=== PATIENT | female | born 1995 | race Caucasian/White ===

== ENCOUNTER 2019-02-11 14:47 | Inpatient (IN) | payer OTHER ==
[~2019-02-11] VITALS: Ht 160 cm; Wt 80.7 kg
[2019-02-11 14:47] VITALS: BP 136/80
--- NOTE | 2019-02-11 14:47 | NUR ---
Patient BIBA ACLS, transferred to bed 5. RN evaluating patient at bedside.
--- NOTE | 2019-02-11 14:50 | NUR ---
23/F BIBA FROM CLINIC FOR WITNESSED SEIZURE SHORTLY EQUIPMENT MONITOR PHOTOTYPESETTING, NO HEAD OR ORAL TRAUMA, PT WAS HELPED TO FLOOR. PT STATED THAT SHE HAD HER FIRST SEIZURE YESTERDAY, HIT HER HEAD, WENT TO [facility], CT HEAD WAS NEGATIVE, RX KEPPRA BUT NOT STARTED YET. PT REPORTS MILD WEAKNESS AND FEELING SPACED OUT. NO HEAD OR ORAL TRAUMA NOTED. PT ARRIVES TO ED, MILDLY POST-ICTAL, AOX4 BUT SLOW TO ANSWER, GCS 15, PERRLA 3MM. LUNG SOUNDS CLEAR BL, RR EVEN AND UNLABORED. ABLE TO MOVE ALL EXTREMITIES BUT WITH WEAKNESS. HX SEIZURE RX KEPPRA (NOT STARTED YET)
--- NOTE | 2019-02-11 14:50 | NUR ---
PT HAD TONIC-CLONIC SEIZURE FOR 30 SECONDS, WITNESSED BY EMT. SAFETY MEASURES ENSURED. DR YAP AWARE.
--- NOTE | 2019-02-11 14:50 | NUR ---
Dr. Hermosillo evaluating patient at bedside.
[2019-02-11] MEDS ORDERED: KETOROLAC 30 MG/ML VIAL IVP ONE (14:55)
[2019-02-11] MEDS ORDERED: NACL 0.9% 1,000 ML IV ONE (14:55)
[2019-02-11] MEDS ORDERED: levETIRAcetam 1,000 MG in NACL 0.9% 100 ML IV ONE (14:55)
[2019-02-11] MEDS ORDERED: LORazepam 2 MG/ML VIAL ONE (15:40)
[2019-02-11] MEDS ORDERED: levETIRAcetam 100 MG/ML VIAL IV ONE (15:41)
[2019-02-11 15:52] LABS: BASOPHILS # (AUTO) 0.1 K/uL (0.00-0.22); BASOPHILS % (AUTO) 0.5 % (0.0-2.0); EOSINOPHILS # (AUTO) 0.1 K/uL (0-0.4); EOSINOPHILS % (AUTO) 0.6 % (0.0-4.0); HEMOGLOBIN 12.9 g/dL (12.0-16.0); LYMPHOCYTES # (AUTO) 2.6 K/uL (2.5-16.5); LYMPHOCYTES % (AUTO) 27.2 % (20.5-51.1); MEAN CORPUSCULAR HEMOGLOBIN 31 pg (27-31); MEAN CORPUSCULAR HGB CONC 34 g/dL (33-37); MEAN CORPUSCULAR VOLUME 89.8 fL (80-94); MONOCYTES # (AUTO) 0.7 K/uL (0.8-1.0); MONOCYTES % (AUTO) 7.7 % (1.7-9.3); PLATELET COUNT (AUTO) 292 K/uL (140-450); RED BLOOD CELL COUNT(AUTO) 4.23 MIL/uL (4.20-5.40); WHITE BLOOD COUNT (AUTO) 9.4 K/uL (4.8-10.8)
[2019-02-11 16:21] LABS: APPEARANCE,URINE CLOUDY (CLEAR); BILIRUBIN,URINE NEGATIVE (NEGATIVE); BLOOD, URINE NEGATIVE (NEGATIVE); COLOR,URINE YELLOW (YELLOW); LEUKOCYTE ESTERASE ,URINE TRACE (NEGATIVE); NITRITE, URINE NEGATIVE (NEGATIVE); PH,URINE 6.5 (5.0-9.0); UGLUCOSE NEGATIVE (NEGATIVE)
[2019-02-11 16:23] LABS: POTASSIUM 3.8 mmol/L (3.5-5.1)
[2019-02-11 16:24] LABS: ALBUMIN 4.1 g/dL (3.4-5.0); ANION GAP 14.6 (8-16); CARBON DIOXIDE 28.2 mmol/L (21-32); CREATININE 0.7 mg/dL (0.6-1.3); TOTAL BILIRUBIN 0.4 mg/dL (0.0-1.0)
[2019-02-11 16:44] LABS: RBC,URINE NONE SEEN /HPF (0-5); WBC,URINE 0-5 /HPF (0-5)
[2019-02-11 17:15] LABS: BARBITURATE, URINE NEGATIVE ng/ml (NEG <=200); BENZODIAZEPINE, URINE NEGATIVE ng/mL (NEG <=200); CANNABINOID, URINE POSITIVE ng/mL (NEG <=50); COCAINE, URINE NEGATIVE ng/mL (NEG <=300); OPIATE, URINE NEGATIVE ng/mL (NEG <=2000); PHENCYCLIDINE SCREEN,URINE NEGATIVE ng/mL (NEG <=25)
--- NOTE | 2019-02-11 17:16 | NUR ---
RECEIVED CALLBACK FROM . NO NEW ORDERS RECEIVED. PT IN STABLE CONDITION AT THIS TIME. ENDORSED TO EDUCATION REPORTER FOR CONTINUITY OF CARE.
--- NOTE | 2019-02-11 17:35 | NUR ---
PT LAYING IN BED, MOTHER AT BEDSIDE. VS NOTED. RR EVEN AND UNLABORED. REPORTS IMPROVEMENT IN SYMPTOMS, AOX4. ALL NEEDS MET.
--- NOTE | 2019-02-11 18:02 | NUR ---
Patient will be admitted to care of DR CLIFFORD. Admited to TELE. Will go to room 120A. Belongings list completed. Report to DAVIDA VERA.
[2019-02-11 18:20] VITALS: BP 110/59
[2019-02-11] MEDS ORDERED: cloNIDine 0.1 MG TAB PO PRN (18:20)
[2019-02-11] MEDS ORDERED: ONDANSETRON 4 MG/2 ML VIAL IVP PRN (18:20)
[2019-02-11] MEDS ORDERED: ACETAMINOPHEN 325 MG TAB PO PRN (18:20)
[2019-02-11] MEDS ORDERED: ACETAMINOPHEN 650 MG SUPP RC PRN (18:20)
[2019-02-11] MEDS ORDERED: ALUMINUM HYD/MAG/SIMETHICONE 30 ML UDC PO PRN (18:20)
[2019-02-11] MEDS ORDERED: SODIUM PHOSPHATE 118 ML ENEM RC PRN (18:20)
[2019-02-11] MEDS ORDERED: LORazepam 2 MG/ML VIAL IVP PRN ×2 (18:20)
[2019-02-11] MEDS ORDERED: POTASSIUM CHLORIDE 10 MEQ TABER PO PRN (18:20)
[2019-02-11] MEDS ORDERED: MORPHINE SULFATE 2 MG/ML SYR IVP PRN (18:20)
[2019-02-11] MEDS ORDERED: ALBUTEROL 0.083% 2.5 MG/3 ML NEBU INH PRN (18:20)
[2019-02-11] MEDS ORDERED: guaiFENesin DM 200/20 MG-10 ML 10 ML UDC PO PRN (18:20)
[2019-02-11] MEDS ORDERED: BISACODYL 10 MG SUPP RC PRN (18:20)
[2019-02-11] MEDS ORDERED: MAGNESIUM OXIDE 400 MG TAB PO PRN (18:20)
[2019-02-11] MEDS ORDERED: MAG SULF 2000 MG/WATER PREMIX 50 ML IV PRN (18:20)
[2019-02-11] MEDS ORDERED: IPRATROPIUM 0.02% 0.5 MG/2.5 ML NEBU INH PRN (18:20)
[2019-02-11] MEDS ORDERED: diphenhydrAMINE 50 MG/ML VIAL IVP PRN (18:20)
[2019-02-11] MEDS ORDERED: DOCUSATE SODIUM 250 MG GELCAP PO PRN (18:20)
[2019-02-11] MEDS ORDERED: HYDROcodone/APAP 5/325 MG 1 TAB TAB PO PRN ×2 (18:20)
--- NOTE | 2019-02-11 18:20 | NUR ---
RECEIVED PT FROM [facility] ED NURSE. PT IS AAOX4, COOPERATIVE. PT ADMITTED FOR NEW ONSET SEIZURES. PT SKIN IS INTACT. ON RA. DENIES PAIN OR SOB. PT HAS LEFT AC 20G, NO FLUID ORDERS AT THIS TIME. PT VITAL SIGNS STABLE. ROOM CHECK DONE. EXPLAINED VS TO PT, PT VERBALIZED UNDERSTANDING. PT WITH FAMILY AT BEDSIDE. EDUCATED PT AND FAMILY ON USE OF CALL LIGHT. TOLD TO CALL FOR ANYTHING INCLUDING SEIZURES. PT AND FAMILY VERBALIZED UNDERSTANDING. BED IN LOW POSITION, CALL LIGHT WITHIN REACH. WILL ROUND FREQUENTLY ON PT.
[2019-02-11 18:51] VITALS: BP 105/60
--- NOTE | 2019-02-11 18:59 | NUR ---
PT HAD SEIZURE AT 1847 THAT LASTED 20 SECONDS. 2MG ATIVAN GIVEN. VS TAKEN AND ALL STABLE. PT ABLE TO ANSWER SIMPLE COMMANDS BUT DELAYED. PAGED. AWAITING CALL BACK.
--- NOTE | 2019-02-11 19:19 | NUR ---
RECEIVED PT. AOX4 MRSA SWAB NARES TAKEN PER PROTOCAL SENT TO LAB. FAMILY AT BEDSIDE. CALL LIGHT WITHIN REACH.
--- NOTE | 2019-02-11 19:20 | NUR ---
REPORT RECIEVED FROM DAY NURSE. PT. STABLE, IV PATENT, EKG SR. SAFETY MEASURES IN PLACE. CALL LIGHT WITHIN REACH.
[2019-02-11 20:00] VITALS: BP 105/65
[2019-02-11] MEDS: NACL 0.9% 1,000 ML IV SCH (20:22)
[2019-02-11] MEDS: levETIRAcetam 1,000 MG in NACL 0.9% 100 ML IV SCH (20:35)
--- NOTE | 2019-02-11 21:30 | NUR ---
PT RESTING NO SEIZURE ACTIVITY. IV PATENT. KEPPRA MEDICATION GIVEN ORDERED. BED LOW POSITION 2 SIDERAILS UP CALL LIGHT WITHIN REACH.
--- NOTE | 2019-02-11 23:30 | NUR ---
PT. RESTING NO DISTRESS PT TALKING WITH FAMILY AT BEDSIDE. NO SEIZURE ACTIVITY. CALL LIGHT WITHIN REACH
[2019-02-12] VITALS: BP 116/47
--- NOTE | 2019-02-12 01:30 | NUR ---
pT AWAKE AND SCARED ABOUT WHAT IS HAPPENING. PT. MEDICATED WITH AMBEIM 5MG ORDERED FOR SLEEP. BED LOW POSITION 2 SIDERAILS UP CALL LIGHT WITHIN REACH.
[2019-02-12] MEDS: ZOLPIDEM 5 MG TAB PO PRN ×2 (01:39→23:28)
[2019-02-12 04:00] VITALS: BP 102/49
--- NOTE | 2019-02-12 06:26 | NUR ---
ENDORSED PT CARE TO DAY NURSE. PT STABLE. SR TELEMETRY.
--- NOTE | 2019-02-12 07:25 | NUR ---
Received report from pm nurse Gianluca. Pt asleep in bed, arousable by auditory stimuli, able to follow commands. Pt shows no signs of distress, no c/o discomfort, answers questions appropriately. Left AC IV intact with ongoing NS @ 50ml/h. Bed alarm on. Call light within reach.
[2019-02-12 08:00] VITALS: BP 105/60
--- NOTE | 2019-02-12 08:22 | NUR ---
PATIENT HAS BEEN SCREENED AND CATEGORIZED LOW NUTRITION RISK. PATIENT WILL BE SEEN WITHIN 7 DAYS OF ADMISSION. 02/18/[address]
[2019-02-12] MEDS: levETIRAcetam 1,000 MG in NACL 0.9% 100 ML IV SCH ×2 (09:50→20:02)
--- NOTE | 2019-02-12 10:30 | NUR ---
Pt resting in bed, no c/o discomfort. No signs of distress. Family at bedside. No seizure activity noted. Bed alarm on. Call light within reach.
[2019-02-12 12:00] VITALS: BP 112/60
--- NOTE | 2019-02-12 13:40 | NUR ---
Pt assisted to restroom. Pt states she doesn't like using the bedside commode. Pt unsteady, handheld assist provided. Pt voided then assisted back to bed. Bed alarm on. Left AC IV intact with ongoing NS @ 50ml/h. Encouraged pt to call for assistance with transfers & ambulation for safety, verbalized understanding. Call light within reach.
[2019-02-12 16:00] VITALS: BP 112/66
[2019-02-12] MEDS: NACL 0.9% 1,000 ML IV SCH (16:07)
[2019-02-12] MEDS ORDERED: INFLUENZA VACCINE QUAD 0.5 ML SYR IM PRN (18:20)
--- NOTE | 2019-02-12 18:24 | NUR ---
Pt resting in bed, currently undergoing EEG with tech at bedside. No signs of distress, FLACC 0. Left AC IV intact with ongoing NS@ 50ml/h. Call light within reach.
--- NOTE | 2019-02-12 19:14 | NUR ---
Report given to pm nurse Mick. Pt resting in bed, family at bedside. Bed alarm on, call light within reach.
--- NOTE | 2019-02-12 19:15 | NUR ---
REPORT RECEIVED FROM AM NURSE AT BEDSIDE. PT IN STABLE CONDITION. AAOX4. INTRODUCED SELF TO PT. BOARD UPDATED. NO COMPLAINTS OF PAIN. NO SOB. AFEBRILE. PT IS AMBULATORY BUT UNSTEADY. HAS A BEDSIDE COMMODE AT BEDSIDE. IV SITE L AC 20G RUNNING NS@50ML/HR PATENT AND INTACT. SKIN WARM, DRY, AND INTACT WITH NO OPEN WOUNDS. BED LOCKED IN LOW POSITION. CALL SANTILLAN WITHIN REACH. SAFETY PRECAUTION IN PLACE. ALL NEEDS MET AT THIS TIME.
[2019-02-12 20:00] VITALS: BP 113/66
--- NOTE | 2019-02-12 20:02 | NUR ---
AMANDA JAY AND RUNNING. PT TOLERATING WELL.
--- NOTE | 2019-02-12 22:00 | NUR ---
PT SLEEPING COMFORTABLY BUT AROUSABLE. NO S/S OF DISTRESS NOTED. WILL CONTINUE TO MONITOR.
--- NOTE | 2019-02-12 23:28 | NUR ---
AMBIEN GIVEN FOR SLEEP. PT TOLERATED WELL.
--- NOTE | 2019-02-12 23:45 | NUR ---
PT SIGNIFICANT OTHER AT BEDSIDE TO VISIT PATIENT. PT AWAKE AND ALERT. NO S/S OF DISTRESS NOTED. WILL CONTINUE TO MONITOR.
[2019-02-13] VITALS: BP 143/51
--- NOTE | 2019-02-13 | NUR ---
PATIENT NOTIFIED ME THAT IV ACCIDENTALLY REMOVED. NOTIFIED THAT PT ALSO REFUSED NEW IV INSERTION. SAID IT IS OK TO KEEP PATIENT WITHOUT IV.
--- NOTE | 2019-02-13 01:45 | NUR ---
PT SLEEPING COMFORTABLY BUT AROUSABLE. NO S/S OF DISTRESS NOTED. RESPIRATIONS EVEN, UNLABORED, AND WNL. NO SEIZURES DURING THIS SHIFT. WILL CONTINUE TO MONITOR.
--- NOTE | 2019-02-13 03:35 | NUR ---
PT SLEEPING COMFORTABLY BUT AROUSABLE. NO S/S OF DISTRESS NOTED. NO COMPLAINTS OF PAIN. NO SOB. AFEBRILE. WILL CONTINUE TO MONITOR.
[2019-02-13 04:00] VITALS: BP 137/63
[2019-02-13] MEDS ORDERED: SODIUM CHLORIDE FLUSH 10 ML SYR IVF SCH (05:00)
--- NOTE | 2019-02-13 05:40 | NUR ---
PT SLEEPING COMFORTABLY BUT AROUSABLE. NO S/S OF DISTRESS NOTED. RESPIRATIONS EVEN, UNLABORED, AND WNL. WILL CONTINUE TO MONITOR.
--- NOTE | 2019-02-13 06:47 | NUR ---
PT SLEEPING COMFORTABLY BUT AROUSABLE. NO S/S OF DISTRESS NOTED. PT IN STABLE CONDITION.
--- NOTE | 2019-02-13 07:20 | NUR ---
RECEIVED REPORT FROM JINRIKSHA DRIVER NURSE. AAOX4, NO C/O PAIN AT THIS TIME. PT ON TELE MONITOR. RESPIRATIONS EVEN AND UNLABORED ON RA. PER DR. CLIFFORD, OK NOT TO HAVE IV LINE AT THIS TIME. BS ACTIVE, SOFT ABDOMEN. SKIN IS INTACT, WARM TO TOUCH. REVIEWED POC WITH PT, PT VERBALIZED UNDERSTANDING.
[2019-02-13 08:00] VITALS: BP 99/57
[2019-02-13] MEDS ORDERED: LEVE1000 PO (09:20)
--- NOTE | 2019-02-13 09:53 | NUR ---
PT GIVEN KEPPRA PER ORDER, PT AWARE OF INDICATION AND POTENTIAL SIDE EFFECTS. ADMINISTERED FLU VACCINE TO LT DELTOID. WILL CONTINUE TO MONITOR.
[2019-02-13] MEDS ORDERED: levETIRAcetam 500 MG TAB PO SCH ×2 (10:00→21:00)
--- NOTE | 2019-02-13 11:10 | NUR ---
PT HAS BEEN DISCHARGED. ALL PAPERWORK SIGNED, ALL QUESTIONS ANSWERED. ALL BELONGINGS AND PRESCRIPTIONS IN PT POSSESSION. IV DISCONTINUED WITH CANNULA INTACT. WRISTBANDS AND TELE MONITOR REMOVED. PT TRANSFERRED OUT OF UNIT VIA WHEELCHAIR, AUNT AND STUDENT NURSE AT SIDE. PT IS IN STABLE CONDITION.
--- NOTE | 2019-02-18 15:17 | NUR ---
CONTACTED PATIENT'S PCP DR. SALMON'S OFFICE AT [phone], ABLE TO SPEAK TO RAYSHAWN, SHE PROVIDED ME WITH FEB 23, 2019 AT 1420PM. ADDRESS TO THE CLINIC IS [address] [place] [address]. CONTACTED PATIENT AT [phone], NO ANSWER. UNABLE TO LEAVE MESSAGE, NO VOICEMAIL.
== END 2019-02-13 11:10 | disposition home or self-care (01) | DRG 53 ==
LOC: MED 14:47 → MTU 17:33
PROVIDERS: ADMIT Internal Medicine Pulmonary Disease; ATTEND Internal Medicine Pulmonary Disease
PROC: 4A00X4Z Measurement of Central Nervous Electrical Activity, External Approach (ICD-10-PCS; principal; 2019-02-13)
PROC: 3E02340 Introduction of Influenza Vaccine into Muscle, Percutaneous Approach (ICD-10-PCS; 2019-02-13)
DX: G40.901 Epilepsy, unspecified, not intractable, with status epilepticus (principal); E66.9 Obesity, unspecified; F12.90 Cannabis use, unspecified, uncomplicated; Z82.0 Family history of epilepsy and other diseases of the nervous system; Z68.31 Body mass index [BMI] 31.0-31.9, adult; Z23 Encounter for immunization
CPT/HCPCS: 36415; 80053; 80305; 81001; 85025; 87081; 87086; 87186; 95816; 96361; 96365; 96375; 99285; J1885; J1953; J2060; J3475; J7030

== ENCOUNTER 2019-10-21 22:58 | Emergency (ER) | payer OTHER, SELFPAY ==
[~2019-10-21] VITALS: Ht 160 cm; Wt 72.6 kg
[~2019-10-21 22:58] MED LIST: LEVE1000 PO
[2019-10-21 23:05] VITALS: BP 130/93
--- NOTE | 2019-10-21 23:10 | NUR ---
24 y/o female presented to ED c/o LLQ abd pain x 1 week , 8/10 stabbing pain. pt states she has been having n/v/d x 1 week . pt states she went to [facility] ER on 10/15 and was dx w/ diverticulitis . pt states she was given antibiotics and since she started taking the medication. Pt states she hasn't been able to hold anything down, food or drinks , x 4 days. Pt states she last vomitted x 1 hr ago. pt states she has been having diarrhea x 3 weeks but blood in stool starting saturday. Pt took Peptobismo today. Pt states she has not taken her seizure medication keppra today and has not been able to hold her medications down the past few days. pt connected to cardiac technician, bp cuff and pulse ox. Seizure precautions in place. Pt breathing even and unlabored. Pt VSS. Pt resting in bed , locked and in lowest position, HOB elevated , side rail x2 for pt safety. pmh: seizures , rx: alli asencio
--- NOTE | 2019-10-21 23:17 | NUR ---
PT WAITING IN TENT
[2019-10-21] MEDS ORDERED: NACL 0.9% 1,000 ML IV ONE (23:20)
[2019-10-21] MEDS ORDERED: KETOROLAC 30 MG/ML VIAL IVP ONE (23:20)
[2019-10-21] MEDS ORDERED: ONDANSETRON 4 MG/2 ML VIAL IVP ONE (23:20)
--- NOTE | 2019-10-21 23:30 | NUR ---
Dr. Leal examining patient.
[2019-10-21 23:49] LABS: BASOPHILS # (AUTO) 0.1 K/uL (0.00-0.22); BASOPHILS % (AUTO) 1.4 % (0.0-2.0); EOSINOPHILS % (AUTO) 0.1 % (0.0-4.0); HEMATOCRIT 43.7 % (36-48); HEMOGLOBIN 14.6 g/dL (12.0-16.0); LYMPHOCYTES # (AUTO) 1.4 K/uL (2.5-16.5); MEAN CORPUSCULAR HEMOGLOBIN 30 pg (27-31); MEAN CORPUSCULAR HGB CONC 34 g/dL (33-37); MEAN CORPUSCULAR VOLUME 90.8 fL (80-94); MONOCYTES # (AUTO) 0.5 K/uL (0.8-1.0); MONOCYTES % (AUTO) 8.3 % (1.7-9.3); NEUTROPHILS # (AUTO) 3.8 K/uL (1.8-7.7); NEUTROPHILS % (AUTO) 65.2 % (42.2-75.2); PLATELET COUNT (AUTO) 191 K/uL (140-450); RED BLOOD CELL COUNT(AUTO) 4.81 MIL/uL (4.20-5.40); RED CELL DISTRIBUTION WIDTH 12.4 % (11.6-13.7); WHITE BLOOD COUNT (AUTO) 5.8 K/uL (4.8-10.8)
--- NOTE | 2019-10-21 23:55 | NUR ---
PT TAKEN TO CT
--- NOTE | 2019-10-22 00:02 | NUR ---
PT RETURNED BACK FROM CT VIA W/C.
[2019-10-22 00:05] LABS: ANION GAP 17.2 (8-16); CARBON DIOXIDE 25.3 mmol/L (21-32); POTASSIUM 3.5 mmol/L (3.5-5.1)
[2019-10-22 00:11] LABS: ALBUMIN 4.2 g/dL (3.4-5.0); TOTAL BILIRUBIN 0.3 mg/dL (0.0-1.0)
--- NOTE | 2019-10-22 01:09 | NUR ---
pt resting in bed, locked and in lowest position, HOB elevated , side rail x2 and seizure precautions in place for pt safety.
--- NOTE | 2019-10-22 01:26 | NUR ---
oscar lozano delievered to lab.
[2019-10-22 01:56] VITALS: BP 106/63
--- NOTE | 2019-10-22 01:57 | NUR ---
Patient discharged with v/s stable. Written and verbal after care instructions given and explained. Patient alert, oriented and verbalized understanding of instructions. Ambulatory with steady gait. All questions addressed prior to discharge. ID band removed. Patient advised to follow up with PMD. Rx of motrin and zofran given. Patient educated on indication of medication including possible reaction and side effects. Opportunity to ask questions provided and answered.
--- NOTE | 2019-10-24 06:25 | NUR ---
LATE ENTRY -- RECEIVED A POSITIVE COVID RESULT, REPORT GIVEN TO INFECTION CONTROL.
== END 2019-10-22 01:57 | disposition home or self-care (01) ==
LOC: MED 22:58 → EEVIPCON 22:58 → MED 10-22 01:57
DX: A08.4 Viral intestinal infection, unspecified (principal); F12.90 Cannabis use, unspecified, uncomplicated; K57.92 Diverticulitis of intestine, part unspecified, without perforation or abscess without bleeding; R56.9 Unspecified convulsions; Z20.828 Contact with and (suspected) exposure to other viral communicable diseases; Z79.899 Other long term (current) drug therapy; Z98.890 Other specified postprocedural states
CPT/HCPCS: 36415; 74176; 80053; 81002; 81025; 85025; 87040; 96361; 96374; 96375; 99284; J1885; J2405; J7030; U0003